=== PATIENT | male | born 1960 | race Caucasian/White ===

== ENCOUNTER 2025-03-05 06:35 | Day surgery (SDC) | payer MEDICARE, SELFPAY ==
[2025-02-28 13:32] VITALS: BMI 33.9
[2025-03-05] VITALS (14 sets, daily range): BP systolic 134–185; BP diastolic 75–104; PULSE 76–92; RESP 12–24; TEMP 36.3–36.6; O2SAT 96–98; BMI 33.0
[2025-03-05] MEDS: SODIUM CHLORIDE 0.9% 500 ML 500 ML 100 ML IV (07:23)
[2025-03-05] MEDS: DiphenhydrAMINE INJ 50 MG/ML VIAL 25 MG IVP (07:25)
[2025-03-05] MEDS: MIDAZOLAM INJ 1 MG/ML VIAL 2 ML (ASD USE ONLY) 2 MG IVP (07:36)
[2025-03-05] MEDS: fentaNYL CIT INJ 50 mCg/ML AMP 2ML (ASD USE ONLY) IVP (07:44)
== END 2025-03-05 08:40 | disposition home or self-care (01) ==
PROVIDERS: PCP Family Medicine; Referring Provider Surgery; Visit Provider Surgery
PROC: 0DBE8ZX Excision of Large Intestine, Via Natural or Artificial Opening Endoscopic, Diagnostic (ICD-10-PCS; CPT 45380; principal; 2025-03-05 07:30)
DX: D12.3 Benign neoplasm of transverse colon (principal); D12.4 Benign neoplasm of descending colon; K64.0 First degree hemorrhoids; K51.411 Inflammatory polyps of colon with rectal bleeding
CPT/HCPCS: 45385; 45380; J1200; J2250; J3010; J7040

== ENCOUNTER → 2025-09-03 | Outpatient (CLI) | payer MEDICARE, SELFPAY ==
--- NOTE | 2025-09-03 16:30 | XR_ITS ---
Examination: CT maxillofacial, without intravenous contrast. 2-D sagittal reconstructions. 3-D reconstructions. Date and time of exam: September 03, 2025, 1149 hours INDICATIONS: Difficulty breathing through the nose several years, diagnosis deviated nasal septum CTDI: vol (mGy): 16.8 DLP: (mGycm): 346 Technique: Multiple axial images of maxillofacial region, 3.0 mm slice thickness. 2-D sagittal and coronal reconstructions. 3-D reconstructions. Low dose protocols were performed. One or more of the following dose reduction techniques were used; automated exposure control, adjustment of the mA and/or KV according to patient size, use of iterative reconstruction technique. Findings: Deviation nasal septum to the right 7 mm Mild hypertrophy left inferior nasal turbinate Mucosal thickening polypoid in nature in the maxillary antra up to 10 mm No fluid levels No cortical bone destruction Normal epiglottis IMPRESSION: Deviation nasal septum to the right 7 mm Mild hypertrophy left inferior nasal turbinate Mucosal thickening polypoid in nature in the maxillary antra up to 10 mm.
== END | disposition home or self-care (01) ==
PROVIDERS: PCP Family Medicine; Referring Provider Family Medicine; Visit Provider Family Medicine
DX: J34.2 Deviated nasal septum (principal); J34.3 Hypertrophy of nasal turbinates; J01.00 Acute maxillary sinusitis, unspecified
CPT/HCPCS: 70486

== ENCOUNTER 2025-09-17 09:50 | Emergency (ER) | payer MEDICARE, SELFPAY ==
[2025-09-17 09:57] VITALS: BP 213/112; PULSE 73; RESP 16; TEMP 36.6; O2SAT 99; BMI 30.5
--- NOTE | 2025-09-17 09:58 | EKG_ITS ---
[facility] Test Date: 2025-09-17 Pat Name: JORDY PRAJAPATI Department: Room: - Gender: Male Neurocritical Care Physician: : [id number] Requested By: Ángel Myles Order Number: [id number] Reading MD: Ángel Myles Measurements Intervals [place] Rate: 80 P: 12 NV: 195 QRS: -12 QRSD: 97 T: 78 QT: 369 QTc: 427 Interpretive Statements SINUS RHYTHM NONSPECIFIC T-WAVE ABNORMALITY No previous ECG available for comparison /[id number]/[email or web address]/[id number]
--- NOTE | 2025-09-17 10:24 | PD.EDRME ---
Rapid Medical Screening Exam RME Arrival date/time: 09/17/25 09:50 Chief Complaint: Dizziness Time Seen by Provider: 09/17/25 13:42 Vital signs: Vital Signs Temperature 97.9 F 09/17/25 09:57 Pulse Rate 73 09/17/25 09:57 Respiratory Rate 16 09/17/25 09:57 Blood Pressure 213/112 H 09/17/25 09:57 Pulse Oximetry (%) 99 09/17/25 09:57 Oxygen Delivery Method Room Air 09/17/25 09:57 RME Narrative: 65-year-old male with a past medical history of hypertension, high cholesterol, diabetes who typically takes amlodipine, hydralazine and carvedilol for his blood pressure which he did take this morning is complaining of feeling lightheaded with a mild headache which started around 7 AM. Patient additionally states that his left arm has been irritating him for the past 2 months mainly when he is moving his elbow however today feels like it is more swollen than normal. Patient's lightheadedness and arm pain is not exacerbated with walking. Denies chest pain, nausea vomiting. I briefly performed a screening evaluation to initiate work-up and expedite care. Complete history, physical exam, and plan of care is deferred to the provider in the main ED. Exam: Head: Normocephalic, atraumatic. Respiratory: Normal effort. No respiratory distress or accessory muscle use. Neuro: Speech normal. Skin: Warm, dry, normal color. Psych: Pleasant. Normal affect. Cooperative. Clinical Impression: Hypertension with near syncope and left arm pain
--- NOTE | 2025-09-17 10:27 | XR_ITS ---
PA and lateral chest film on 09/17/2025 at 10:31 a.m. Comparison study 03/23/2005 CLINICAL HISTORY: No history given FINDINGS: Heart size and mediastinal areas and hilar regions all appear radiographically normal. There is mild dilatation and tortuosity of the thoracic aorta most probably related to hypertensive cardiovascular disease Both right and left lungs and pleural space are well seen and clear and normal. No abnormalities are seen anywhere in the bony thorax. IMPRESSION: 1. There is mild dilatation and tortuosity of the thoracic aorta most consistent with hypertensive cardiovascular disease, etc. This is slightly definitely more prominent than on the last chest film. 2. Chest film otherwise entirely normal
--- NOTE | 2025-09-17 10:29 | XR_ITS ---
Examination: CT brain head without contrast. 2-D sagittal coronal reconstructions Date and time of exam: September 17, 2025, 1106 hours INDICATIONS: Generalized head pain hypertension beginning this morning CTDI: vol (mGy): 54 DLP: (mGycm): 1126 Technique: Multiple CT axial sections of the brain have been obtained, 5 mm slice thickness. Contrast has not been administered. 2-D sagittal, coronal reconstructions have been obtained Low dose protocols were performed. One or more of the following dose reduction techniques were used; automated exposure control, adjustment of the mA and/or KV according to patient size, use of iterative reconstruction technique. Findings: No significant ventricular enlargement. Intra-axial or extra-axial hemorrhage density is not seen. No mass effect or midline shift Basal cisterns are not remarkable. Fourth ventricle is midline. Cranial vault intact. Impression: Negative for acute hemorrhage, mass effect or midline shift
[2025-09-17 11:03] LABS: Basophils # (Auto) 0.0 Thou/mm3 (0.0-0.2); Basophils % (Auto) 0 % (0-2.5); Eosinophils # (Auto) 0.3 Thou/mm3 (0.0-0.5); Eosinophils % (Auto) 3 % (0-10); Hematocrit 36.1 % (41.0-53.0); Hemoglobin 11.7 g/dL (13.5-16.0); Immature Granulocytes Auto 0.07 Thou/mm3 (0.00-0.00); Lymphocytes # (Auto) 1.2 Thou/mm3 (1.0-4.8); Lymphocytes % (Auto) 12 % (10-50); Mean Corpuscular HGB Conc 32.4 g/dl (31.0-37.0); Mean Corpuscular Hemoglobin 27.4 pg (25.0-35.0); Mean Corpuscular Volume 85 fL (80-100); Monocytes # (Auto) 0.8 Thou/mm3 (0.0-0.8); Monocytes % (Auto) 8 % (0-12); Neutrophils # (Auto) 7.6 Thou/mm3 (1.8-7.7); Neutrophils % (Auto) 76 % (37-80); Nucleated Red Blood Cell # 0.00 Thou/mm3 (0.00-0.00); Nucleated Red Blood Cell % 0 /100 WBC (0); Platelet Count 232 Thou/mm3 (140-440); RDW Standard Deviation 44.7 fL (35.1-43.9); Red Blood Count 4.27 Miln/mm3 (4.50-5.90); White Blood Count 10.0 Thou/mm3 (3.8-10.6)
[2025-09-17 11:17] LABS: INR 1.0 (0.9-1.3); Prothrombin Time 10.9 Seconds (9.0-12.2)
[2025-09-17 11:32] LABS: B-Type Natriuretic Peptide 193 pg/mL (0-100)
[2025-09-17 11:50] LABS: Alanine Aminotransferase 26 U/L (10-49); Albumin, Serum 4.1 gm/dL (3.4-4.8); Albumin/Globulin Ratio 1.8 (1.2-2.2); Alkaline Phosphatase 79 U/L (46-116); Anion Gap 9 (7-16); Aspartate Amino Transferase 26 U/L (0-34); BUN/Creatinine Ratio 8 Ratio (12-20); Bilirubin,Total 0.3 mg/dL (0.3-1.2); Blood Urea Nitrogen 21 mg/dL (9-23); Calcium 9.7 mg/dL (8.3-10.6); Calcium (Corrected) 9.7 mg/dL (8.5-10.1); Carbon Dioxide 25.0 mMol/L (20.0-31.0); Chloride 108 mMol/L (98-107); Creatinine (Component) 2.5 mg/dL (0.6-1.3); Estimated Creatinine Clearance 37.4 mL/min (>60); Globulin 2.3 gm/dL (2.3-3.5); Glucose 111 mg/dL (74-106); Lipase 81 U/L (12-53); Osmolality,Calculated 287 (275-295); Potassium 5.1 mMol/L (3.4-5.1); Sodium 142 mMol/L (136-145); Total Protein 6.4 gm/dL (5.7-8.2); eGFR 28 See Note
[2025-09-17 11:58] LABS: Troponin I 0.127 ng/mL (0.0-0.045)
--- NOTE | 2025-09-17 13:10 | XR_ITS ---
Examination: Duplex scan of the upper extremity, unilateral left side Date and time of exam: 09/17/2025 at 1:20 p.m. Clinical history: Patient complains of pain in the midportion of the left upper extremity and swelling in the left hand intermittently for few days Technique: Duplex scan of the extremity veins using B-mode/grayscale imaging and Doppler spectral analysis and color flow Attention is directed to internal echogenicity, compression and augmentation involving these veins, color flow assessment, spectral analysis Findings: Major deep venous structures in the extremity demonstrate normal course and caliber. There is no evidence of deep vein thrombosis. Normal color flow and compressibility and spectral analysis Impression: Negative for DVT..
[2025-09-17 14:45] VITALS: BP 216/120; PULSE 76; RESP 18; O2SAT 100
--- NOTE | 2025-09-17 15:15 | PD.EDDIZZY ---
ED Dizzyness RME/HPI General Chief Complaint: Dizziness Stated Complaint: Dizzy, BP 204/110 this am, left arm swollen Time Seen by Provider: 09/17/25 13:42 Arrival date/time: 09/17/25 09:50 RME / HPI RME / HPI Narrative: 65-year-old male with a past medical history of hypertension, high cholesterol, diabetes who typically takes amlodipine, hydralazine and carvedilol for his blood pressure which he did take this morning is complaining of feeling lightheaded with a mild headache which started around 7 AM. Patient additionally states that his left arm has been irritating him for the past 2 months mainly when he is moving his elbow however today feels like it is more swollen than normal. Patient's lightheadedness and arm pain is not exacerbated with walking. Denies chest pain, nausea vomiting. I briefly performed a screening evaluation to initiate work-up and expedite care. Complete history, physical exam, and plan of care is deferred to the provider in the main ED. DR. SKINNER MAIN ED EVALUATION: 65 year old male with history of hypertension (currently on Losartan, Carvedilol, Hydralazine), chronic back pain presents to the ED for evaluation of elevated blood pressure today. Reports he woke up at his usual state of health. Shortly after noticed he felt light headed and my face was warm . States he checked his blood pressure and SBP in the 200s, prompting ED visit. Denies any associated chest pain or pressure, cough, or shortness of breath. In the ED, reports his light headedness has improved. No other associated symptoms or complaints reported. Patient reports compliance with his medications though states he has not taken his 2PM dose of the Hydralazine due to being in the ED. Patient also reports he last consulted with his PCP Dr. David and during that time noted blood pressure to be elevated in the office. However, they attributed that to his back pain. Exam: Head: Normocephalic, atraumatic. Respiratory: Normal effort. No respiratory distress or accessory muscle use. Neuro: Speech normal. Skin: Warm, dry, normal color. Psych: Pleasant. Normal affect. Cooperative. Impression: Hypertension with near syncope and left arm pain Related Data Home Medications ?Medication ?Instructions ?Recorded ?Confirmed insulin regular human 100 unit/mL 20 unit subcut ACHS 08/15/19 03/05/25 injection solution metformin 500 mg tablet 1,000 mg PO BID 08/15/19 03/05/25 tamsulosin 0.4 mg capsule (Flomax) 0.4 mg PO QDAY 08/15/19 03/05/25 amlodipine 10 mg tablet 10 mg PO QDAY 03/05/25 03/05/25 aspirin 81 mg tablet,delayed 81 mg PO QDAY 03/05/25 03/05/25 release (Adult Low Dose Aspirin) Held on 03/05/25. Instructions: Resume on 03/08/25. atorvastatin 40 mg tablet 40 mg PO QDAY 03/05/25 03/05/25 baclofen 20 mg tablet 20 mg PO HS PRN pain 03/05/25 03/05/25 carvedilol 6.25 mg tablet 6.25 mg PO Q12H 03/05/25 03/05/25 hydralazine 25 mg tablet 25 mg PO Q8H 03/05/25 03/05/25 insulin degludec 200 unit/mL (3 120 unit subcut HS 03/05/25 03/05/25 mL) subcutaneous pen (Tresiba FlexTouch U-200 insulin) omeprazole magnesium 20 mg 20 mg PO QDAY 03/05/25 03/05/25 tablet,delayed release (Prilosec OTC) semaglutide 1 mg/dose (4 mg/3 mL) 1 mg subcut QWEEK 03/05/25 03/05/25 subcutaneous pen injector (Ozempic) Allergies Allergy/AdvReac Type Severity Reaction Status Date / Time No Known Allergies Allergy Verified 09/17/25 09:56 Review of Systems Review of Systems Systems Reviewed: All systems reviewed, normal except as documented Past Medical History Past Medical History 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 Course Quality Measures none Orders Category Date Time Status Continuous EKG monitoring NOW Care 09/17/25 10:27 Active Continuous Pulse Oximetry NOW Care 09/17/25 10:27 Completed EKG (ED ONLY) *Do not use* NOW Care 09/17/25 09:[address] head/brain wo con Stat Exams 09/17/25 10:29 Completed EKG (ED Only) Stat Exams 09/17/25 09:58 Draft US venous doppler UE LT Stat Exams 09/17/25 13:10 Completed XR chest 2V Stat Exams 09/17/25 10:27 Completed B-Type Natriuretic Peptide Stat Lab 09/17/25 10:51 Completed CBC Stat Lab 09/17/25 10:51 Completed Comprehensive Metabolic Panel Stat Lab 09/17/25 10:51 Completed INR [Prothrombin Time with INR] Stat Lab 09/17/25 10:51 Completed Lipase Stat Lab 09/17/25 10:51 Completed Troponin I Stat Lab 09/17/25 10:51 Completed Troponin I Stat Lab 09/17/25 14:58 Completed dexAMETHasone INJ [Decadron Inj] Med 09/17/25 13:10 Discontinued 10 mg IM X1 ONE hydrALAZINE INJ [Apresoline Inj] Med 09/17/25 15:16 Discontinued 20 mg IVP X1 ONE Vital Signs Vital signs: Vital Signs Temperature 97.9 F 09/17/25 09:57 Pulse Rate 73 09/17/25 09:57 Respiratory Rate 16 09/17/25 09:57 Blood Pressure 213/112 H 09/17/25 09:57 Pulse Oximetry (%) 99 09/17/25 09:57 Oxygen Delivery Method Room Air 09/17/25 09:57 Pulse ox is 99% on room air which is adequate. Dizziness MDM Narrative MDM Narrative:: I, Mariaa Strauss, edvin scribing for and in the presence of Dr. Skinner. Patient is denied any chest pain pressure tightness or heaviness. EKG shows normal sinus rhythm at a rate of 80 without ischemic change or ectopy. Blood pressure was elevated at 212/110 here in the emergency room. Patient received hydralazine 20 mg IV which helped decrease the blood pressure 178/84. Original troponin was slightly elevated but second troponin shows no delta increase. Patient wants to go home. I feel comfortable discharging the patient home. He does have primary care follow-up. He is to continue his 3 separate blood pressure medications at home. Return to ER as needed or if condition worsens. Patient data External records reviewed:: [facility] previous records Clinical information provided by:: patient Social determinants that could affect healthcare access:: none Patient has the following chronic illnesses:: Hypertension, chronic back pain How is presenting disease/condition affected by chronic disease/condition?: exacerbated by Evaluation data The following diagnostics were reviewed and interpreted by me:: lab results, radiology exam(s) and EKG tracing(s) Lab and/or radiology exams considered but not ordered:: None Interpretation Summary: Ordering Physician: Axel Lee PA-C Date of Service: 09/17/25 Procedure(s): XR chest 2V Accession Number(s): [id number] cc: Shamar David PA-C; Sesar Hermosillo MD; Axel Lee PA-C~ PA and lateral chest film on 09/17/2025 at 10:31 a.m. Comparison study 03/23/2005 CLINICAL HISTORY: No history given FINDINGS: Heart size and mediastinal areas and hilar regions all appear radiographically normal. There is mild dilatation and tortuosity of the thoracic aorta most probably related to hypertensive cardiovascular disease Both right and left lungs and pleural space are well seen and clear and normal. No abnormalities are seen anywhere in the bony thorax. IMPRESSION: 1. There is mild dilatation and tortuosity of the thoracic aorta most consistent with hypertensive cardiovascular disease, etc. This is slightly definitely more prominent than on the last chest film. 2. Chest film otherwise entirely normal Dictated By: Sesar Hermosillo MD Signed By: <Electronically signed by Sesar Hermosillo MD in OV> 09/17/25 1100 Ordering Physician: Axel Lee PA-C Date of Service: 09/17/25 Procedure(s): CT head/brain wo con Accession Number(s): [id number] cc: Shamar David PA-C; Sesar Kelley MD; Axel Lee PA-C~ Examination: CT brain head without contrast. 2-D sagittal coronal reconstructions Date and time of exam: September 17, 2025, 1106 hours INDICATIONS: Generalized head pain hypertension beginning this morning CTDI: vol (mGy): 54 DLP: (mGycm): 1126 Technique: Multiple CT axial sections of the brain have been obtained, 5 mm slice thickness. Contrast has not been administered. 2-D sagittal, coronal reconstructions have been obtained Low dose protocols were performed. One or more of the following dose reduction techniques were used; automated exposure control, adjustment of the mA and/or KV according to patient size, use of iterative reconstruction technique. Findings: No significant ventricular enlargement. Intra-axial or extra-axial hemorrhage density is not seen. No mass effect or midline shift Basal cisterns are not remarkable. Fourth ventricle is midline. Cranial vault intact. Impression: Negative for acute hemorrhage, mass effect or midline shift Dictated By: Sesar Kelley MD Signed By: <Electronically signed by Sesar Kelley MD in OV> 09/17/25 1112 Ordering Physician: Liam Min PA-C Date of Service: 09/17/25 Procedure(s): US venous doppler UE Accession Number(s): [id number] cc: Liam Min PA-C; Shamar David PA-C; Sesar Hermosillo MD~ Examination: Duplex scan of the upper extremity, unilateral left side Date and time of exam: 09/17/2025 at 1:20 p.m. Clinical history: Patient complains of pain in the midportion of the left upper extremity and swelling in the left hand intermittently for few days Technique: Duplex scan of the extremity veins using B-mode/grayscale imaging and Doppler spectral analysis and color flow Attention is directed to internal echogenicity, compression and augmentation involving these veins, color flow assessment, spectral analysis Findings: Major deep venous structures in the extremity demonstrate normal course and caliber. There is no evidence of deep vein thrombosis. Normal color flow and compressibility and spectral analysis Impression: Negative for DVT.. Dictated By: Sesar Hermosillo MD Signed By: <Electronically signed by Sesar Hermosillo MD in OV> 09/17/25 1343 Medications / Prescriptions Medications or Prescriptions considered but not ordered:: None Medication administrations:: Medication Administration History Discontinued Medications Dexamethasone Sodium Phosphate (Dexamethasone Sod Phos Inj 10 Mg/Ml Vial) 10 mg IM X1 ONE Stop: 09/17/25 13:11 Last Admin: 09/17/25 15:21 Dose: Not Given Documented By: VL Non-Admin Reason: Cancelled by Provider Hydralazine HCl (Hydralazine Inj 20 Mg/Ml Vial) 20 mg IVP X1 ONE Stop: 09/17/25 15:17 Last Admin: 09/17/25 15:23 Dose: 20 mg Documented By: VL See above Consultations Consultation(s) initiated? (list below): No Diagnosis Most likely diagnosis given after review of the tests above:: none Admission Indicated Admission indicated?: not indicated Explain why admission is indicated or not indicated:: With no condition needing emergent intervention, there was no indication for admission. Admission Request Was there a request for admission?: No Disposition Plan Disposition Plan: Discharge Discharge Attestation Discharge Attestation: The patient and all family members were given an opportunity to ask questions and understood the discharge instructions. Discharge instructions specifically effects, indications for sooner follow up or return to the emergency department, and the expected course of current diagnosis. Patient condition: Stable Discharge Plan Plan Patient Disposition: HOME (Self Care) Prescriptions/Referrals Prescriptions/Med Rec: No Action metformin 500 mg Tablet 1,000 mg PO BID tamsulosin [Flomax] 0.4 mg Capsule 0.4 mg PO QDAY insulin regular human 100 unit/mL Solution 20 unit subcut ACHS Rx Instructions: SLIDING SCALE insulin degludec [Tresiba FlexTouch U-200] 200 unit/mL (3 mL) insulin pen 120 unit SUBCUT HS Patient Comments: INJECT 120 UNITS SUBCUTANEOUSLY AT BEDTIME DIRECTED FOR 30 DAYS baclofen 20 mg tablet 20 mg PO HS PRN (Reason: pain) Patient Comments: TAKE 1 TABLET BY MOUTH ONCE DAILY AT NIGHT WITH FOOD OR MILK hydralazine 25 mg tablet 25 mg PO Q8H Patient Comments: TAKE 1 TABLET BY MOUTH THREE TIMES DAILY WITH FOOD amlodipine 10 mg tablet 10 mg PO QDAY Patient Comments: TAKE 1 TABLET BY MOUTH ONCE DAILY carvedilol 6.25 mg tablet 6.25 mg PO Q12H Patient Comments: TAKE 1 TABLET BY MOUTH TWICE DAILY WITH FOOD atorvastatin 40 mg tablet 40 mg PO QDAY Patient Comments: TAKE 1 TABLET BY MOUTH ONCE DAILY omeprazole magnesium [Prilosec OTC] 20 mg tablet,delayed release (DR/EC) 20 mg PO QDAY aspirin [Adult Low Dose Aspirin] 81 mg tablet,delayed release (DR/EC) 81 mg PO QDAY Ozempic 1 mg/dose (4 mg/3 mL) pen injector 1 mg subcut QWEEK Referrals: Shamar David PA-C [Primary Care Provider] - In 1 week Problem List Clinical Impression: Poorly-controlled hypertension Patient/Caregiver Discharge Instructions Education Materials: Hypertension Dc Additional Instructions: Continue all current medications. Follow-up with your doctor. Return to ER as needed or if condition worsens. Print Language: Malay Stand Alone Forms: Loren Award Info., Patient Portal Info Letter
[2025-09-17 15:23] VITALS: BP 221/113; PULSE 72
[2025-09-17] MEDS: hydrALAZINE INJ 20 MG/ML VIAL IVP (15:23)
[2025-09-17 15:54] VITALS: BP 178/96; PULSE 82; RESP 19; O2SAT 98
[2025-09-17 15:57] LABS: Troponin I 0.125 ng/mL (0.0-0.045)
[2025-09-17 16:49] VITALS: BP 176/95; PULSE 89; RESP 14; TEMP 37.1; O2SAT 99
== END 2025-09-17 16:51 | disposition home or self-care (01) ==
PROVIDERS: Physician Assistant; Emergency Provider Emergency Medicine; PCP Family Medicine
DX: I10 Essential (primary) hypertension (principal); I77.810 Thoracic aortic ectasia; R51.9 Headache, unspecified; M79.89 Other specified soft tissue disorders; E78.00 Pure hypercholesterolemia, unspecified
CPT/HCPCS: 36415; 70450; 71046; 80053; 83690; 83880; 84484; 85025; 85610; 93005; 93971; 96374; 99284; J0360